=== PATIENT | male | born 1995 | race Caucasian/White ===

== ENCOUNTER 2016-12-15 06:14 | Observation (INO) | payer OTHER, SELFPAY ==
--- NOTE | ~2016-12-15 | HP ---
History And Physical [address] [facility] [place]. [address] NAME: MAGNO ROMERO : [birth year] STATUS : DIS Palak PAT#: [id number] AGE: 21 ADM/REG DATE : 12/15/16 MR#: [id number] REPORT SERV DATE: 12/24/16 DICTATED BY: ORION VIEIRA III DATE: 12/24/16 REPORT STATUS : Draft TRANSCRIBED BY: MODL DATE: 12/24/16 DATE OF ADMISSION: 12/15/2016 DATE OF SURGERY: 12/15/2016. INDICATION: The patient is a 21-year-old white male who had a large right testicular mass for well over a year and ultrasound showed it to be solid and hyperemic. He has had no other medical problems other than some back pain. He had some back pain and has had no weight loss. Prior to admission, tumor markers were positive and this was felt to be a nonseminomatous testicular cancer. In addition, CT scans were done showing a 12 cm mass in the abdomen displacing the vena cava with clot and numerous mediastinal nodes. PAST MEDICAL HISTORY: Includes no major surgery. ALLERGIES: HE IS ALLERGIC TO PENICILLIN. MEDICATIONS: He is on no chronic medications. HABITS: He does drink daily. REVIEW OF SYSTEMS: Covered in the history of present illness. PHYSICAL EXAMINATION: GENERAL: On exam, he is a thin white male. HEENT: Unremarkable with the exception of a palpable left supraclavicular node. LUNGS: Lung alvarez were clear. HEART: He had a regular rate and rhythm without murmur or gallop. ABDOMEN: Soft. Bowel sounds are present and active. There was some fullness in the abdomen and mild tenderness. : Testicles descended bilaterally, palpably normal. The right testicle was approximately 9-10 cm and extremely firm but not tender. There was no inguinal adenopathy. IMPRESSION: Testicular cancer. We will do an inguinal-approach radical orchiectomy. I have explained to him I may have to extend the incision down towards the penis or the scrotum to remove the tumor intact. He understands the above and we will proceed with a radical orchiectomy. OB/MODL Orion Vieira III, M.D. / [id number] History And Physical [address] [address] NAME: MAGNO ROMERO : [birth year] STATUS : DIS Palak PAT#: [id number] AGE: 21 ADM/REG DATE : 12/15/16 MR#: [id number] REPORT SERV DATE: 12/24/16 DICTATED BY: ORION VIEIRA III DATE: 12/24/16 REPORT STATUS : Draft TRANSCRIBED BY: MODL DATE: 12/24/16 CC: Orion Vieira III, M.D.
--- NOTE | ~2016-12-15 | PUL ---
[address] [address] NAME: MAGNO ROMERO : [birth year] STATUS : DIS Palak PAT#: [id number] AGE: 21 ADM/REG DATE : 12/15/16 MR#: [id number] REPORT SERV DATE: 12/19/16 DICTATED BY: JERSEY MASCORRO DATE: 12/18/16 REPORT STATUS : Draft TRANSCRIBED BY: MODL DATE: 12/18/16 PULMONARY FUNCTION TEST FEV1 of 4.6 L or 102% predicted. Forced vital capacity of 5.59 L or 103% predicted. FEV1/FVC of 82%. DLCO of 65%. INTERPRETATION: Normal spirometry. Decreased DLCO. KB/MODL Jersey Mascorro M.D. / [id number] CC: Orion Cabrera III, M.D.
--- NOTE | ~2016-12-15 | OP ---
Record Of Operation [address] [place]. [address] NAME: MAGNO ROMERO : [birth year] STATUS : ADM Palak PAT#: [id number] AGE: 21 ADM/REG DATE : 12/15/16 MR#: [id number] REPORT SERV DATE: 12/16/16 DICTATED BY: ORION VIEIRA III DATE: 12/15/16 REPORT STATUS : Draft TRANSCRIBED BY: MODL DATE: 12/15/16 DATE OF PROCEDURE: 12/15/2016 PROCEDURE: Right radical orchiectomy. PREOPERATIVE DIAGNOSIS: Right testicular cancer. POSTOPERATIVE DIAGNOSIS: Right testicular cancer. ANESTHESIA: General. SURGEON: Orion Vieira M.D. DESCRIPTION OF PROCEDURE: Following induction of adequate general anesthesia, the patient was prepped and draped in a sterile fashion. Incision was made over the inguinal canal and carried down through the Thomas's fascia. Several small veins were ligated. The external oblique fascia was identified. This was opened. The ilioinguinal nerve was under the upper sheath. The cord was large and clump. I was able to free it at the pubic tubercle and we got a Miller around it. The tumor, however, was much too large to come up through the inguinal ring. I made an extension of the incision down toward the penis and into the upper scrotum. This finally allowed me to bring a portion of the testicle up. With finger dissection, I was able to free the testicle from the majority of the medial and lateral attachments and gradually we brought it up through the incision. It was sharply and bluntly dissected from the scrotum. There was no evidence for extension beyond the specimen. It was gradually brought up through the expanded external ring and the cord dissected back to the internal ring. At this point, it was clamped, doubly tied with silk sutures. There was a good bit of oozing in the scrotum and the inguinal canal. This was taken care with cautery and in some cases, small LigaSure. The specimen was handed off and Dr. Munoz the wound was thoroughly irrigated and the external oblique fascia was closed with a running 0 chromic. There was some oozing from the scrotum and this was again irrigated several times and a small NAIN drain placed within the separate puncture wound into the scrotum. The Thomas's fascia was approximated, followed by the subcutaneous tissues. The subcuticular closure was done with 4-0 Monocryl and Tegaderm. The patient tolerated the procedure well. Blood loss was less than 20 mL. OB/MODL Orion Vieira III, M.D. / [id number]
[~2016-12-15 06:14] MED LIST: ADVIL PO; T PO
[2016-12-15 22:42] LABS: CREATININE 0.9 MG/DL (0.70-1.30)
[2016-12-16 06:18] LABS: BASOPHILS 0.3 %; BASOPHILS ABSOLUTE 0.02 10/3/uL (0.0-0.16); EOSINOPHILS 1.2 %; EOSINOPHILS ABSOLUTE 0.08 10/3/uL (0.0-0.53); HEMOGLOBIN 11.4 g/dL (13.6-17.8); LYMPHOCYTES 20.6 %; LYMPHOCYTES ABSOLUTE 1.33 10/3/uL (0.67-4.30); MEAN CORPUSCULAR HEMOGLOB 26.1 pg (26.0-34.0); MEAN CORPUSCULAR VOLUME 81.7 fL (80-100); MEAN PLATELET VOLUME 9.7 fL (9.2-13.0); MONOCYTES 8.8 %; MONOCYTES ABSOLUTE 0.57 10/3/uL (0.21-1.20); NEUTROPHILS 69.1 %; NEUTROPHILS ABSOLUTE 4.47 10/3/uL (2.02-8.40); PLATELET COUNT 270 10/3/uL (150-400); RBC DISTRIBUTION WIDTH 13.9 % (12.0-16.0); RED CELL COUNT 4.36 10/6/uL (4.7-6.1); WHITE BLOOD CELLS 6.5 10/3/uL (4.5-10.5)
[2016-12-16 06:20] LABS: HEMATOCRIT 35.6 % (40.0-51.0); MANUAL DIFF NO %
[2016-12-16] MEDS ORDERED: PERCOCET 10/3251 TAB PO (15:39)
[2016-12-24] MEDS ORDERED: ZOFRANODT8 PO (10:54)
[2016-12-24] MEDS ORDERED: COMP10B PO (10:55)
[2016-12-24] MEDS ORDERED: CPZ25 PO (10:56)
[2016-12-24] MEDS ORDERED: MARI2.5 PO (10:56)
[2016-12-24] MEDS ORDERED: CISPLATIN (10:59)
[2016-12-24] MEDS ORDERED: ETOPOSIDE (11:02)
[2016-12-24] MEDS ORDERED: BLEOMYCIN (11:03)
[2016-12-24] MEDS ORDERED: ELIQUIS 5 MG TAB5 MG PO (11:04)
== END 2016-12-17 18:13 | disposition home or self-care (01) ==
LOC: SDC 06:14 → 4SO 13:09
PROVIDERS: Internal Medicine Hematology & Oncology; Urology
PROC: 0VT90ZZ Resection of Right Testis, Open Approach (ICD-10-PCS; principal; 2016-12-15 07:45)
DX: C62.91 Malignant neoplasm of right testis, unspecified whether descended or undescended (principal); Z88.0 Allergy status to penicillin; Z79.1 Long term (current) use of non-steroidal anti-inflammatories (NSAID); Z79.899 Other long term (current) drug therapy; Z88.1 Allergy status to other antibiotic agents; Z98.890 Other specified postprocedural states
CPT/HCPCS: 36569; 70553; 71020; 83615; 85025; 88309; 88331; 88341; 88342; 88360; 93306; 94010; 94729; A9577; C1751; G0378; J2250; J2270; J2405; J3010

== ENCOUNTER 2016-12-28 04:24 | Day surgery (SDC) | payer OTHER ==
--- NOTE | ~2016-12-28 | OP ---
Record Of Operation [facility] [address] [place]. [address] NAME: MAGNO ROMERO : [birth year] STATUS : [facility]#: [id number] AGE: 21 ADM/REG DATE : 12/28/16 MR#: [id number] REPORT SERV DATE: 12/29/16 DICTATED BY: DAVID GUTIERREZ DATE: 12/29/16 REPORT STATUS : Draft TRANSCRIBED BY: CALOS DATE: 12/29/16 DATE OF PROCEDURE: 12/28/2016 PREOPERATIVE DIAGNOSIS: Testicular cancer. POSTOPERATIVE DIAGNOSIS: Testicular cancer. OPERATION PERFORMED: Right internal jugular Port-A-Cath placement under ultrasound and fluoroscopic guidance. SURGEON: David Gutierrez M.D. ANESTHESIA: MAC plus local. ESTIMATED BLOOD LOSS: Less than 10 mL. IV FLUIDS: Adequate. DESCRIPTION OF OPERATION: After appropriate sedation, the patient was prepped and draped in appropriate sterile fashion. Ultrasound probe was placed over the right neck. He had a patent and pliable right internal jugular vein. Subcutaneous tissues on the right neck and right chest wall were infiltrated with local anesthesia. Right internal jugular vein was then cannulated using a 14-gauge needle. A guidewire was then fed under fluoroscopic guidance just above the right heart. A transverse incision was made in the right chest wall. Subcutaneous tissues were incised down to pectoralis fascia and the pocket was bluntly dissected. We placed an introducer sheath over the guidewire. A catheter was then fed through the introducer sheath with tip being just above the right heart. This was visualized under fluoroscopy. The catheter was then tunneled subcutaneously to the port pocket and secured to the port. Port was secured to the chest wall using 3-0 Vicryl suture. The port was flushed and aspirated, flushed and aspirated easily. We confirmed placement once again radiographically. The skin was closed using interrupted 3-0 Vicryl suture. Steri-Strips and dressings were then placed. The patient was taken to recovery room in satisfactory condition. GALILEO/CALOS David Gutierrez M.D. / [id number] CC: David Gutierrez M.D.
[~2016-12-28 04:24] MED LIST changes: +BLEOMYCIN; +CISPLATIN; +COMP10B PO; +CPZ25 PO; +ELIQUIS 5 MG TAB5 MG PO; +ETOPOSIDE; +MARI2.5 PO; +PERCOCET 10/3251 TAB PO; +ZOFRANODT8 PO
== END 2016-12-28 14:41 | disposition home or self-care (01) ==
LOC: SDC 04:24
PROVIDERS: Specialist
PROC: 05HM33Z Insertion of Infusion Device into Right Internal Jugular Vein, Percutaneous Approach (ICD-10-PCS; 2016-12-28)
PROC: B513YZA Fluoroscopy of Right Jugular Veins using Other Contrast, Guidance (ICD-10-PCS; 2016-12-28)
PROC: B543ZZA Ultrasonography of Right Jugular Veins, Guidance (ICD-10-PCS; 2016-12-28)
PROC: 0JH60XZ Insertion of Tunneled Vascular Access Device into Chest Subcutaneous Tissue and Fascia, Open Approach (ICD-10-PCS; principal; 2016-12-28 05:45)
DX: C62.91 Malignant neoplasm of right testis, unspecified whether descended or undescended (principal); Z88.0 Allergy status to penicillin; Z88.8 Allergy status to other drugs, medicaments and biological substances; Z79.899 Other long term (current) drug therapy; Z79.891 Long term (current) use of opiate analgesic; Z98.890 Other specified postprocedural states
CPT/HCPCS: 71010; 76000; 77001; C1788; J2250; J2405; J3010; J3370